=== PATIENT | male | born 1990 | race Caucasian/White ===

== ENCOUNTER 2024-06-20 22:08 | Emergency (ER) | payer BC ==
[~2024-06-20] VITALS: Ht 172.7 cm; Wt 84.0 kg
[2024-06-20 22:12] VITALS: TEMP 98.4; O2SAT 97
[2024-06-20 22:41] VITALS: O2SAT 98
[2024-06-21 01:05] VITALS: BP 128/94; PULSE 86; RESP 16
[2024-06-21] MEDS: IBUPROFEN 600MG TABLET PO ONE (01:05)
[2024-06-21] MEDS: LIDOCAINE HCL/PF 1% 10 MG/ML 5ML VIAL INFIL ONE (01:12)
[2024-06-21] MEDS: BACITRACIN ZINC OINT UDPKT TOP ONE (01:13)
== END 2024-06-21 02:13 | disposition home or self-care (01) ==
LOC: ER 22:08
DX: S61.215A Laceration without foreign body of left ring finger without damage to nail, initial encounter (principal); W26.9XXA Contact with unspecified sharp object(s), initial encounter; Y93.89 Activity, other specified; Y92.89 Other specified places as the place of occurrence of the external cause; Y99.8 Other external cause status
CPT/HCPCS: 12001; 99282; J3490; Z7610